=== PATIENT | female | born 1995 | race Caucasian/White ===

== ENCOUNTER 2017-02-27 13:30 | Emergency (ER) | payer SELFPAY ==
[~2017-02-27] VITALS: Ht 154.9 cm; Wt 56.8 kg
[2017-02-27 13:33] VITALS: BP 104/55; PULSE 96; TEMP 98.6
[2017-02-27 14:21] LABS: INFLUENZA A NEGATIVE; INFLUENZA B NEGATIVE
[2017-02-27] MEDS ORDERED: ZITHROMAX Z PA250 MG PO (14:58)
== END 2017-02-27 15:02 | disposition home or self-care (01) ==
LOC: COL.ER 13:30
PROVIDERS: Physician Assistant
DX: O99.511 Diseases of the respiratory system complicating pregnancy, first trimester (principal); J40 Bronchitis, not specified as acute or chronic; Z3A.09 9 weeks gestation of pregnancy